=== PATIENT | female | born 1985 | race Caucasian/White ===

== ENCOUNTER 2016-04-03 00:27 | Emergency (ER) | payer SELFPAY ==
[2016-04-03] MEDS ORDERED: IBUPROFEN 600 MG TABLET PO ONE (00:45)
[2016-04-03] MEDS ORDERED: OXYCODONE-ACETAMINOPHEN 5-325 MG TABLET PO ONE (01:27)
[2016-04-03] MEDS ORDERED: HYDROCODONE/ACETAMINOPHEN 5-325 MG 6 TAB/DSPK PO PRN (01:27)
--- NOTE | 2016-04-03 01:32 | ER Document Report ---
ED General - General Chief Complaint: Ankle Injury Stated Complaint: LEFT FOOT SWELLING Notes: Patient is a 30-year-old female without past medical history of present with acute onset of severe pain of her left ankle. States that she was walking around a lot while on vacation in [place] and noticed worsening pain abruptly today. Discussed the pain is severe, constant, sharp pain. Walking on the area worsens the pain. She has not tried anything for relief of the pain. Denies any history of similar symptoms in the past. No prior surgical procedure this ankle. She has not seen her primary care physician regarding today's concerns. TRAVEL OUTSIDE OF THE [place] IN LAST 30 DAYS: No - Related Data Allergies/Adverse Reactions: cephalexin monohydrate [From Funium] Allergy (Unknown, Verified 04/03/16 00:33) Past Medical History - General Information source: Patient - Social History Smoking Status: Current Every Day Smoker Frequency of alcohol use: None Drug Abuse: Marijuana Lives with: Spouse/Significant other Family History: Reviewed & Not Pertinent Patient has suicidal ideation: No Patient has homicidal ideation: No Renal/ Medical History: Reports: Hx Ovarian Cysts, Hx Pelvic Inflammatory Disease - hpv Musculoskeltal Medical History: Reports Hx Arthritis Psychiatric Medical History: Reports: Hx Depression Traumatic Medical History: Reports: Hx Fractures - tailbone and toes Past Surgical History: Reports: Hx Section - x1, Hx Tubal Ligation - Immunizations Immunizations up to date: Yes Hx Diphtheria, Pertussis, Tetanus Vaccination: Yes Review of Systems - Review of Systems Notes: Constitutional: Negative for fever. HENT: Negative for sore throat. Eyes: Negative for visual changes. Cardiovascular: Negative for chest pain. Respiratory: Negative for shortness of breath. Gastrointestinal: Negative for abdominal pain, vomiting or diarrhea. Genitourinary: Negative for dysuria. Musculoskeletal: Positive for left leg pain Skin: Negative for rash. Neurological: Negative for headaches, weakness or numbness. 10 point ROS negative except as marked above and in HPI. Physical Exam - Vital signs Interpretation: Normal Notes: PHYSICAL EXAMINATION: GENERAL: Appears uncomfortable but in no acute distress HEAD: Atraumatic, normocephalic. EYES: sclera anicteric, conjunctiva are normal. ENT: Moist mucous membranes. NECK: Normal range of motion LUNGS: Normal work of breathing HEART: 2+ DP and femoral pulses bilaterally EXTREMITIES: There is notable swelling of the left ankle without swelling of the calf. No pitting. Limited dorsi flexion on the left. NEUROLOGICAL: No focal neurological deficits. Moves all extremities spontaneously and on command. PSYCH: Anxious, tearful SKIN: Warm, Dry, normal turgor, no rashes or lesions noted. Course - Re-evaluation Re-evalutation: 04/03/16 01:30 Patient presents with severe pain of the left ankle found to have a avulsion fracture of the talus. No additional injuries. Unclear mechanism as patient states that she did not have any direct trauma to the area but admits to walking around a lot on vacation over the past several days. She has been placed in a posterior short leg splint with follow-up with orthopedic surgery. At this time will discharge with return precautions and follow-up recommendations. Verbal discharge instructions given a the bedside and opportunity for questions given. Medication warnings reviewed. Patient is in agreement with this plan and has verbalized understanding of return precautions and the need for primary care follow-up in the next 24-72 hours. - Diagnostic Test Radiology reviewed: Image reviewed, Reports reviewed Radiology results interpreted by me: 04/03/16 01:37 Left ankle: Talar fracture Discharge - Discharge Clinical Impression: Pain of left lower extremity Talar fracture Qualifiers: Encounter type: initial encounter Fracture type: closed Fracture morphology: avulsion Fracture alignment: nondisplaced Laterality: left Qualified Code(s): S92.155A - Nondisplaced avulsion fracture (chip fracture) of left talus, initial encounter for closed fracture Condition: Good Disposition: HOME, SELF-CARE Additional Instructions: You have a fracture of your talus on the left. This is a bone that is part of your ankle area and the need to follow-up with orthopedic surgery in the next 1 week. Do not apply weight to the area and use crutches at all times until your cleared by orthopedic surgery. For pain: Take ibuprofen 600 mg every 6 hours. You may take the Cherokee that has been prescribed every 4 hours as needed for pain that is not controlled by ibuprofen. Return sooner to the emergency department if you have worsening of your pain, develop spreading redness from the area, develop a fever greater than 0.4F, or have any other symptoms that are concerning to you. Prescriptions: Hydrocodone/Acetaminophen [Cherokee 5-325 mg Tablet] 1 - 2 tab PO Q4HP PRN #25 tablet PRN Reason: Forms: Return to Work Referrals: KRYS MCKEON MD [ACTIVE STAFF] - Follow up as needed
--- NOTE | 2016-04-03 02:22 | ER Document Report ---
Doctor's Note Notes: 04/03/16 02:20 I was asked by the welding technician to check the splint that she applied to the patient. Patient is a patient of Dr. Galan and he has since left. Patient has a short leg posterior splint on the left foot due to a talus avulsion fracture. Splint is in good position. Good capillary refill in the toes. Good distal sensation.
[2016-04-03] MEDS ORDERED: ONDANSETRON 4 MG TAB.RAPDIS PO ONE (02:25)
[2016-04-03] MEDS ORDERED: ONDANSETRON 4 MG TAB.RAPDIS ONE (02:26)
== END 2016-04-03 02:45 | disposition home or self-care (01) ==
LOC: ER 00:27
DX: S92.155A Nondisplaced avulsion fracture (chip fracture) of left talus, initial encounter for closed fracture (principal); M25.572 Pain in left ankle and joints of left foot; M79.89 Other specified soft tissue disorders; X58.XXXA Exposure to other specified factors, initial encounter; F17.210 Nicotine dependence, cigarettes, uncomplicated
CPT/HCPCS: 99283; 73610; 73630; S0119

== ENCOUNTER 2016-04-04 15:13 | Emergency (ER) | payer SELFPAY ==
--- NOTE | 2016-04-04 15:29 | ER Document Report ---
ED Medical Screen (RME) - General Stated Complaint: LEFT FOOT/LEG PAIN Time seen by provider: 15:29 Mode of Arrival: Ambulatory Information source: Patient Notes: 30-year-old female with avulsion fracture off the left talus is complaining of shooting pain that goes farther up her anterior left lower leg. She drove herself here but the hydrocodone is making her sick and she is unable to manage the pain. She is concerned that something else is wrong with her lower leg other than just the talus. TRAVEL OUTSIDE OF THE [place] IN LAST 30 DAYS: No - Related Data Allergies/Adverse Reactions: cephalexin monohydrate [From Keflex] Allergy (Unknown, Verified 04/03/16 00:33) Past Medical History Renal/ Medical History: Reports: Hx Ovarian Cysts, Hx Pelvic Inflammatory Disease - hpv Musculoskeltal Medical History: Reports Hx Arthritis Psychiatric Medical History: Reports: Hx Depression Traumatic Medical History: Reports: Hx Fractures - tailbone and toes Past Surgical History: Reports: Hx Section - x1, Hx Tubal Ligation - Immunizations Immunizations up to date: Yes Hx Diphtheria, Pertussis, Tetanus Vaccination: Yes Physical Exam - Vital signs Vitals: Temp Pulse Resp BP Pulse Ox 98.0 F 79 16 140/70 H 97 04/04/16 15:22 04/04/16 15:22 04/04/16 15:22 04/04/16 15:22 04/04/16 15:22 Course - Vital Signs Vital signs: Temp Pulse Resp BP Pulse Ox 98.0 F 79 16 140/70 H 97 04/04/16 15:22 04/04/16 15:22 04/04/16 15:22 04/04/16 15:22 04/04/16 15:22
[2016-04-04] MEDS ORDERED: ACETAMINOPHEN 325 MG TABLET PO ONE (15:33)
[2016-04-04] MEDS ORDERED: IBUPROFEN 800 MG TABLET PO ONE (15:33)
--- NOTE | 2016-04-04 16:11 | ER Document Report ---
ED Extremity Problem, Lower - General Chief Complaint: L foot pain Stated Complaint: LEFT FOOT/LEG PAIN Time seen by provider: 16:11 Mode of Arrival: Ambulatory Information source: Patient Notes: 30-year-old female presents to ED follow-up being a avulsion fracture of the left talus with complaints of pain shooting up the back of her leg. She drove herself here and the hydrocodone she was given yesterday is making her sick to her stomach. She states she does not want narcotics while in the emergency room but she would like a prescription for some when she goes home. 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 TRAVEL OUTSIDE OF THE [place] IN LAST 30 DAYS: No - HPI Patient complains to provider of: Injury, Pain, Swelling Location: Ankle Occurred: Other - 2 days Where: Outdoors Onset/Duration: Sudden Quality of pain: Sharp, Throbbing Severity: Moderate Pain Level: 3 Recent injury: Possibly Associated symptoms: Painful ambulation Exacerbated by: Movement, Walking Relieved by: Elevation, Ice, Rest - Related Data Allergies/Adverse Reactions: cephalexin monohydrate [From Keflex] Allergy (Unknown, Verified 04/03/16 00:33) Past Medical History - General Information source: Patient - Social History Smoking Status: Current Every Day Smoker Cigarette use (# per day): Yes Chew tobacco use (# tins/day): No Smoking Education Provided: Yes - than 2 minutes Frequency of alcohol use: None Drug Abuse: Marijuana Lives with: Spouse/Significant other Family History: Reviewed & Not Pertinent Patient has suicidal ideation: No Patient has homicidal ideation: No - Past Medical History Cardiac Medical History: Reports: None Pulmonary Medical History: Reports: None EENT Medical History: Reports: None Neurological Medical History: Reports: None Endocrine Medical History: Reports: None Renal/ Medical History: Reports: Hx Ovarian Cysts, Hx Pelvic Inflammatory Disease - hpv Malignancy Medical History: Reports: None GI Medical History: Reports: None Musculoskeltal Medical History: Reports Hx Arthritis, Reports Hx Musculoskeletal Deformity, Reports Hx Musculoskeletal Trauma Skin Medical History: Reports None Psychiatric Medical History: Reports: Hx Depression Traumatic Medical History: Reports: Hx Fractures - tailbone and toes Infectious Medical History: Reports: None Past Surgical History: Reports: Hx Section - x1, Hx Tubal Ligation - Immunizations Immunizations up to date: Yes Hx Diphtheria, Pertussis, Tetanus Vaccination: Yes Review of Systems - Review of Systems Constitutional: No symptoms reported EENT: No symptoms reported Cardiovascular: No symptoms reported Respiratory: No symptoms reported Gastrointestinal: No symptoms reported Genitourinary: No symptoms reported Female Genitourinary: No symptoms reported Musculoskeletal: Other - Left ankle pain Skin: No symptoms reported Hematologic/Lymphatic: No symptoms reported Neurological/Psychological: No symptoms reported Physical Exam - Vital signs Vitals: Temp Pulse Resp BP Pulse Ox 98.0 F 79 16 140/70 H 97 04/04/16 15:22 04/04/16 15:22 04/04/16 15:22 04/04/16 15:22 04/04/16 15:22 Interpretation: Normal - General General appearance: Appears well, Alert - HEENT Head: Normocephalic, Atraumatic Eyes: Normal Pupils: PERRL - Respiratory Respiratory status: No respiratory distress Chest status: Nontender Breath sounds: Normal Chest palpation: Normal - Cardiovascular Rhythm: Regular Heart sounds: Normal auscultation Murmur: No - Abdominal Inspection: Normal Distension: No distension Bowel sounds: Normal Tenderness: Nontender Organomegaly: No organomegaly - Back Back: Normal, Nontender - Extremities General upper extremity: Normal inspection, Nontender, Normal color, Normal ROM , Normal temperature General lower extremity: Normal temperature. No: Francisco's sign Ankle: Tender - He'll, Limited ROM - Due to pain, Unable to bear weight - Limited ambulation due to pain Foot: Tender - He'll, Unable to bear weight - Limited due to pain. No: Normal, Nontender, Abrasion, Deformity, Edema, Ecchymosis, Instability, Laceration, Metatarsal compress. pain, Nail injury, Navicular tenderness, No evidence of FB , Puncture wound, Tender 5th metatarsal, Other - Neurological Neuro grossly intact: Yes Cognition: Normal Orientation: AAOx4 [place] Coma Scale Eye Opening: Spontaneous [place] Coma Scale Verbal: Oriented [place] Coma Scale Motor: Obeys Commands Suleiman Coma Scale Total: 15 Speech: Normal Motor strength normal: LUE, RUE, LLE, RLE Sensory: Normal - Psychological Associated symptoms: Normal affect, Normal mood - Skin Skin Temperature: Warm Skin Moisture: Dry Skin Color: Normal Course - Vital Signs Vital signs: Temp Pulse Resp BP Pulse Ox 98.2 F 71 16 140/62 H 98 01/09/17 17:08 04/04/16 17:08 04/04/16 17:08 04/04/16 17:08 04/04/16 17:08 - Diagnostic Test Radiology reviewed: Image reviewed, Reports reviewed Procedures - Immobilization Left Foot Immobilizer type: Posterior ankle Performed by: PCT Post-Proc Neuro Vasc Exam: Normal Alignment checked and good: Yes Discharge - Discharge Clinical Impression: Pain of left lower extremity, Avulsion fracture of talus Condition: Stable Disposition: HOME, SELF-CARE Instructions: Avulsion Fracture of the Ankle ([facility]) Additional Instructions: SPLINT PRECAUTIONS: A splint has been placed. This will protect the area while healing begins. Your problem does NOT normally require a cast. It MUST, however, be held still! Keep the splint on ALL THE TIME until instructed to remove it by the doctor. As you begin to use the area, be careful. You shouldn't do anything which causes discomfort -- you may disturb the injury even with the splint in place. After the initial period of rest and elevation, if splint does not prevent pain when you move, come back. You may require placement of a different splint , or a cast. If there is unexpected severe pain, or numbness, discoloration, or swelling beyond the splint, you should return at once. If you feel that the splint has broken or become loose, come back. ICE & ELEVATION: Apply ice packs frequently against the painful area. Many different schedules are recommended, such as "20 minutes on, 20 minutes off" or "one hour ice, two hours rest." If you need to work, you may need to go longer between ice treatments. You should plan to have the area ice packed AT LEAST one- fourth of the time. The ice should be applied over the wrap, tape, or splint, or over a layer of cloth -- not directly against the skin. Some ice bags have a built-in cloth and can be put directly on the skin. Your injured part should be elevated as much as possible over the next 48 hours. Try to keep the injury above the level of the heart. Avoid use of the injured area. Elevation and rest will decrease the swelling. USE OF [id number] IBUPROFEN: Ibuprofen (Advil, Nuprin, Medipren, Motrin IB) is a medication for fever and pain control. In addition, it has anti- inflammatory effects which may be beneficial, especially in the treatment of injuries. It's best to take ibuprofen with food. Persons with ulcer disease or allergy to aspirin should notify their physician of this before taking ibuprofen. Ibuprofen can be given every four to six hours, for a total of four doses daily. Age Pain or fever dose Antiinflammatory dose 6-8 yr 200 mg (1 tab) 200 mg (1 tab) 9-11 yr 200 mg (1 tab) 200-400 mg (1-2 tab) 11-14 yr 200-400 mg (1-2 tab) 400 mg (2 tab) 15-adult 400 mg (2 tab) 600 mg (3 tab) ORAL NARCOTIC MEDICATION: You have been given a prescription for pain control. This medication is a narcotic. It's best taken with food, as nausea can result if taken on an empty stomach. Don't operate machinery or drive within six hours of taking this medication. Do not combine this medicine with alcohol, or with any medication which can cause sedation (such as cold tablets or sleeping pills) unless you get permission from the physician. Narcotics tend to cause constipation. If possible, drink plenty of fluids and eat a diet high in fiber and fruits. Please be aware that prescription narcotics also have the potential for abuse. People become addicted to these medications because of the general sense of wellbeing that they induce. This feeling along with a significant reduction in tension, anxiety, and aggression provides a stimulating seductive quality to these drugs. Once your pain is under control, we encourage you to discard your unused narcotics. FOLLOW-UP CARE: If you have been referred to a physician for follow-up care, call the physician s office for an appointment as you were instructed or within the next two days. If you experience worsening or a significant change in your symptoms, notify the physician immediately or return to the Emergency Department at any time for re-evaluation. Prescriptions: Oxycodone HCl/Acetaminophen [Percocet 5-325 mg Tablet] 1 tab PO Q6HP PRN #15 tablet PRN Reason: Forms: Elevated Blood Pressure, Smoking Cessation Education, Return to Work Referrals: NASIMA MUKHERJEE DPM [ACTIVE STAFF] - Follow up as needed LEEANN ARREDONDO DO [ACTIVE STAFF] - Follow up as needed
[2016-04-04 17:31] VITALS: BP 140/62
== END 2016-04-04 17:10 | disposition home or self-care (01) ==
LOC: ER 15:13
PROC: 2W3TX1Z Immobilization of Left Foot using Splint (ICD-10-PCS; principal; 2016-04-04)
DX: S92.152A Displaced avulsion fracture (chip fracture) of left talus, initial encounter for closed fracture (principal); M79.672 Pain in left foot; F17.210 Nicotine dependence, cigarettes, uncomplicated; X58.XXXA Exposure to other specified factors, initial encounter; Z98.51 Tubal ligation status
CPT/HCPCS: 99283